=== PATIENT | female | born 1965 | race Hispanic/Latino ===

== ENCOUNTER 2016-10-27 09:26 | Emergency (ER) | payer OTHER ==
[~2016-10-27] VITALS: Ht 157.5 cm; Wt 95.5 kg
[~2016-10-27 09:26] MED LIST: DIAZ10TA3; DULO60CA42; GABA100C
[2016-10-27 09:33] VITALS: BP 182/103; PULSE 97; RESP 24; O2SAT 97
--- NOTE | 2016-10-27 09:45 | ED.REPORT ---
HPI-Dyspnea / Wheezing Date of Service Oct 27, 2016 ED Provider: Nadeem Watt MD A 51 year old female with a history of asthma with CPAP, hypertension, hyperlipidemia, and diabetes presents to the ED complaining of "flu-like" symptoms. She began to experience a cough and congestion seven weeks ago with sore throat and rhinorrhea. She also admits to chills and possible fever. The pt went to the walk-in clinic several weeks ago, where she was diagnosed with a sinus infection. She was given antibiotics for this, which were finished eight days ago, but her symptoms have not improved. The pt came to the ED today because it was increasingly difficult to breathe last night. Her cough is productive with yellow sputum, and she has noticed that the sputum has been slightly bloody in the morning. The pt denies chest pain, as well as any history of blood clot or recent travel. No one else is ill at home. The pt has not taken her blood pressure medication today. Nursing Notes Stated Complaint: COUGH,CONGESTION Chief Complaint: FLU/Cold Symptoms Nursing Notes Reviewed: Yes Allergies: Coded Allergies: No Known Allergies (Verified , 10/23/04) Uncoded Allergies: POLLEN,GRASS,TREES,MOLD (Allergy, Unknown, SINUS PROBLEMS, 10/23/04) Scheduled Levofloxacin (Levaquin) 750 Mg Tablet 750 MG PO DAILY Scheduled PRN Promethazine DM Syrup (Promethazine DM Syrup) 118 Ml Syrup 5 ML PO HS PRN PRN For Cough Miscellaneous Medications Diazepam-Expunged Drug, Do Not Renew! (Diazepam-Expunged Drug, Do Not Renew!) 10 Mg Tablet Duloxetine-Expunged Drug, Do Not Renew! (Cymbalta-Expunged Drug, Do Not Renew!) 60 Mg Capsule. Gabapentin-Expunged Drug, Do Not Renew! (Neurontin-Expunged Drug, Do Not Renew! ) 100 Mg Capsule General Time Seen by MD: 09:39 Chief Complaint Cough Hx Obtained From: Patient Arrived By: Walk-in Sudden in Onset?: No Onset Occurred: More than a week ago... Symptom Duration: Since onset Recent Healthcare: No recent hospitalization, Recent doctor visit Similar Sx Previous: No Risk Factors Well's Criteria for PE Hemoptysis (1) Well's PE Score: 0-2 pts (low risk 3.6%) Past Medical History Past Medical History Hx of chest pain Hx of multiple wrist fxs Normal Myocardial Perfusion Scan 2014 Normal Cardiac ECHO 2014. Asthma with CPAP Reports: Diabetes mellitus, Hyperlipidemia, Hypertension Past Surgical History none reported Family History Mother, now , DM and CAD. Smoking History Never Smoker Ambulatory Status Independent Review of Systems Constitutional: Reports: Chills, Fever (possible) Ears / Nose / Throat: Reports: Sore throat Respiratory: Reports: Prod cough, yellow Cardiovascular: Denies: Chest pain Allergy / Immune: Reports: Rhinorrhea Complete sys rev & neg: except as marked. Physical Exam Initial Vital Signs Vital Signs (First) Date Time Temp Pulse Resp B/P Pulse Ox O2 Delivery O2 Flow Rate FiO2 10/27/16 09:33 37.0 97 24 182/103 97 Room Air Initial VS: Reviewed General/Constitutional: Awake, Alert Neck: Atraumatic, Supple, Full range of motion Respiratory / Chest: Atraumatic, Breath sounds NL, Breath sounds = bilat, No respiratory distress Cardiovascular: Regular rhythm, Heart sounds NL, No murmurs Heart Rate / Rhythm: Positive: Tachycardia ENT: Atraumatic, Airway patent, Mucous membranes moist Abdomen: Atraumatic, Soft, Non-tender Back: Atraumatic, Full range of motion Lower Extremity / Pelvis / MS: Atraumatic, Full range of motion, No edema Skin: Atraumatic, Color NL, No rash, Warm, Dry Neurologic: Oriented X3, Speech NL, No motor deficits, No sensory deficits Head / Eyes: Atraumatic, Normocephalic, PERRL, EOMI Upper Extremity / MS: Atraumatic, Full range of motion Psychiatric: Affect NL, Mood NL Interpretation & Diagnostics X-Ray Chest Interpretation Chest Xray Interpretation: IMPRESSION: No acute disease Dictated by: Cameron Mensah M.D. on 10/27/2016 at 10:51 Approved by: Cameron Mensah M.D. on 10/27/2016 at 10:51 Interpretation / Wet Read by: Interpret - Radiologist Re-Eval/Medical Decision Med Decision/Clinical Course 51-year-old female history of asthma, hypertension, hyperlipidemia percent complaining of cough and congestion runny nose 7 weeks. She is status post Augmentin with questionable improvement. Her vital signs are stable. Her wells score for PE is low risk. Chest x-ray clear. Patient with bilateral sinus tenderness. We will treat with Levaquin given failed Augmentin. Recommend she follow up with primary doctor 2-3 days. Return precautions given. Source of Hx: Old records Re-Evaluation/Progress : Time of Eval: 11:18 Patient Status: Condition improved Re-Evaluation/Progress Note: Pt rechecked, who is resting comfortably. She is informed of radiology results and diagnosis. The pt understands and agrees with the plan. All questions are addressed at this time. Counseled Regarding: Diagnosis, Lab results, Need for follow-up, When/why to return to ED Discharge & Departure Impression: Primary Impression: Sinusitis Sinusitis location: unspecified location Chronicity: unspecified Qualified Code: J32.9 - Chronic sinusitis, unspecified Disposition: Home Discharge Condition All VS Reviewed: Yes Condition: Stable Patient Instructions: Sinusitis (ED) Additional Instructions: Your chest x-ray is reassuring and indicates that you have a sinus infection. Take Levaquin as directed and stay hydrated. Follow up with your primary care physician for further evaluation. Return to the ED if you develop any new or worsening symptoms. Referrals: Aisha Mortensen MD (PCP) [facility] Roya Attestation Portions of this note were transcribed by Demetrius Zhu I, Dr. Watt personally performed the history, physical exam and medical decision-making; I reviewed and confirmed the accuracy of the information in the transcribed note. Signed by: Roya Tamez, 10/27/16 and 11:21. copies to: C[facility]IOLOGY,[facility]; Aisha Mortensen MD, Ben M MD Oct 27, 2016 09:45 DEMETRIUS ZHU Oct 27, 2016 10:03
--- NOTE | 2016-10-27 10:52 | DRSVH ---
PROCEDURE: X-RAY CHEST ONE VIEW, PORTABLE ([id number]) INDICATIONS: cough TECHNIQUE: One view of the chest was acquired. COMPARISON: [facility], CR, XR CHEST 1VW (PORTABLE), 10/17/2015, 12:39. FINDINGS: Surgical changes and devices: Cervical spine fixation hardware Lungs and pleura: No pleural effusions or pneumothorax. Lungs are clear. Mediastinum: Mediastinal contours appear normal. Heart size is normal. Bones and chest wall: No suspicious bony lesions. Overlying soft tissues appear unremarkable. IMPRESSION: No acute disease Dictated by: Cameron Mensah M.D. on 10/27/2016 at 10:51 Approved by: Cameron Mensah M.D. on 10/27/2016 at 10:51
[2016-10-27] MEDS ORDERED: LEVO750T9 PO (11:20)
[2016-10-27] MEDS ORDERED: D-ME118S8 PO (11:20)
[2016-10-27 11:28] VITALS: BP 120/82; PULSE 87; O2SAT 96
== END 2016-10-27 11:22 | disposition home or self-care (01) ==
LOC: SED 09:26
DX: J32.9 Chronic sinusitis, unspecified (principal); J45.909 Unspecified asthma, uncomplicated; E11.9 Type 2 diabetes mellitus without complications; E78.5 Hyperlipidemia, unspecified; I10 Essential (primary) hypertension; Z99.81 Dependence on supplemental oxygen

== ENCOUNTER 2017-06-08 14:39 | Emergency (ER) | payer OTHER ==
[~2017-06-08] VITALS: Ht 158.8 cm; Wt 86.7 kg
[~2017-06-08 14:39] MED LIST changes: +D-ME118S8 PO; +LEVO750T9 PO
[2017-06-08 14:41] VITALS: BP 188/92; PULSE 73; RESP 18; O2SAT 98
--- NOTE | 2017-06-08 15:08 | ED.REPORT ---
HPI-Chest Pain 40 and Over Date of Service Jun 08, 2017 ED Provider: Mike Tomlinson MD Pt is a 52 year old female with a history of hypertension, hyperlipidemia, depression, and DM who presents to the ED complaining of chest pain onset two weeks. She states that the pain radiates to her left arm, and worsens with exertion, moving her head certain ways, and deep inspiration. Today, she noticed that her legs felt heavier, so she called her psychiatrist who recommended coming to the ED. Additional symptoms include fatigue and numbness in her mouth and lips. Pt was evaluated for cardiac disease about a year ago, and was determined that everything was normal. Her mother at 57 from cardiac disease with an enlarged heart. Nursing Notes Stated Complaint: CHEST PAIN Chief Complaint: Chest Pain Nursing Notes Reviewed: Yes Allergies: Coded Allergies: No Known Allergies (Verified , 06/08/17) Uncoded Allergies: POLLEN,GRASS,TREES,MOLD (Allergy, Unknown, SINUS PROBLEMS, 10/23/04) Scheduled Levofloxacin (Levaquin) 750 Mg Tablet 750 MG PO DAILY Scheduled PRN Promethazine DM Syrup (Promethazine DM Syrup) 118 Ml Syrup 5 ML PO HS PRN PRN For Cough Miscellaneous Medications Diazepam-Expunged Drug, Do Not Renew! (Diazepam-Expunged Drug, Do Not Renew!) 10 Mg Tablet Duloxetine-Expunged Drug, Do Not Renew! (Cymbalta-Expunged Drug, Do Not Renew!) 60 Mg Capsule. Gabapentin-Expunged Drug, Do Not Renew! (Neurontin-Expunged Drug, Do Not Renew! ) 100 Mg Capsule General Time Seen by MD: 15:07 Chief Complaint Chest pain Hx Obtained From: Patient Arrived By: Walk-in Sudden in Onset?: No Onset Occurred: More than a week ago... (2 weeks) Quality: Painful Severity: Current: Mild Severity: Maximum: Moderate Exacerbated by: Exertion, mild, Movement (of head), Palpation of chest Context Related History: Reports: Diabetes mellitus, Hypertension Recent Healthcare: Recent doctor visit Risk Factors )( CAD Risk Stratification Diabetes mellitus Family history Hyperlipidemia Hypertension Risk factors reviewed )( TAD Risk Stratification Hypertension Risk factors reviewed )( PE Risk Stratification Risk factors reviewed NIH Stroke Scale Level of Consciousness: Alert and responsive (0) Ask Month & Age: Both questions right (0) Open/Close Eyes/Hand Grinder Set Up Operator Thread Tool: Performs both tasks (0) Horizontal EO Movements: None (0) Visual Ball: No visual loss (0) Facial Palsy: Normal symmetry (0) Right Arm Motor Drift (10s): No drift 10 sec (0) Left Arm Motor Drift (10s): No drift 10 sec (0) Right Leg Motor Drift (5s): No drift 5 sec (0) Left Leg Motor Drift (5s): Drift, not touch bed (1) Limb Ataxia FNF/Heel-Sutton: No ataxia (0) Sensation (Arms/Legs/Face): Pinprick less sharp (1) Language Aphasia: No aphasia, normal (0) Dysarthria: No dysarthria, normal (0) Extinction/Inattention: No exctinct/inattent (0) NIHSS Score: 2 Time NIHSS Performed: 15:31 Date NIHSS Performed: Jun 08, 2017 Past Medical History Past Medical History Hx of chest pain Hx of multiple wrist fxs Normal Myocardial Perfusion Scan 2014 Normal Cardiac ECHO 2014. 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 Smoking History Never Smoker Ambulatory Status Independent Review of Systems Review of Systems Note: Heaviness in bilateral legs Constitutional: Reports: Fatigue Cardiovascular: Reports: Chest pain Neurologic: Reports: Numbness (in mouth and lips) Complete sys rev & neg: except as marked. Physical Exam Initial Vital Signs Vital Signs (First) Date Time Temp Pulse Resp B/P Pulse Ox O2 Delivery O2 Flow Rate FiO2 06/08/17 14:41 37 73 18 188/92 98 Room Air Initial VS: Reviewed Head / Eyes: Atraumatic, Normocephalic Neck: Supple, Full range of motion Extremities: Vascular intact, Neuro intact, No swelling, No tenderness Skin: Warm, Dry, No cyanosis Neurologic: Alert, Oriented, Nonfocal Psychiatric: Mood/affect normal, Behavior normal, Normal thought content General/Constitutional: Awake, Alert Respiratory / Chest: Atraumatic, Breath sounds NL, Breath sounds = bilat, No respiratory distress Tenderness and reproducible pain with palpation on left-side of chest Cardiovascular: Heart rate NL, Regular rhythm, Heart sounds NL Abdomen: Soft, Non-tender Interpretation & Diagnostics Brain MRI: IMPRESSION: 1. No infarct or other acute intracranial abnormality. 2. Scattered bilateral subcortical and periventricular foci of white matter T2 hyperintensity are nonspecific but likely represent mild chronic small vessel ischemic changes. The differential is broad and includes sequelae of inflammatory processes such as vasculitis, migraines, or prior infection among other etiologies. Dictated by: Constantino Shepard M.D. on 06/08/2017 at 17:19 Approved by: Constantino Shepard M.D. on 06/08/2017 at 17:19 Lab Results Interpretation Result Diagram: 06/08/17 1516 06/08/17 1516 Test 06/08/17 15:16 White Blood Count 6.4th/mm3 (3.8-10.1) Red Blood Count 4.12mil/mm3 (3.90-5.20) Hemoglobin 11.9g/dL (12.0-15.6) Hematocrit 36.4% (35.0-46.0) Mean Corpuscular Volume 88.3fL (81-100) Mean Corpuscular Hemoglobin 28.9pg (27.0-35.0) Mean Corpuscular Hemoglobin Concent 32.7% (32.0-37.0) Red Cell Distribution Width 13.4% (12.3-15.4) Platelet Count 194bil/L (150-400) Neutrophils (%) (Auto) 56.5% (40-74) Lymphocytes (%) (Auto) 33.2% (14-46) Monocytes (%) (Auto) 9.2% (4-12) Eosinophils (%) (Auto) 0.9% (0-5) Basophils (%) (Auto) 0.2% (0-3) Sodium Level 137mEq/L (134-144) Potassium Level 4.6mEq/L (3.5-5.2) Chloride Level 102mEq/L (97-108) Carbon Dioxide Level 21mmol/L (18-29) Blood Urea Nitrogen 11mg/dL (6-24) Creatinine 0.64mg/dL (0.57-1.00) Estimat Glomerular Filtration Rate 140mL/min (>59) Glucose Level 113mg/dL (60-99) Calcium Level 9.5mg/dL (8.5-10.1) Magnesium Level 2.1mg/dL (1.6-2.6) Total Bilirubin 0.3mg/dL (0.0-1.2) Aspartate Amino Transf (AST/SGOT) 26U/L (0-50) Alanine Aminotransferase (ALT/SGPT) 20U/L (0-32) Alkaline Phosphatase 95U/L (25-150) Troponin T < 0.010ug/L (0.0-0.011) Total Protein 8.1g/dL (6.4-8.4) Albumin 4.8g/dL (3.4-5.0) ECG Interpretation ECG Interpretation: Sinus rhythm, rate 62 Time: 14:53 Interpreted by: ED physician X-Ray Chest Interpretation Chest Xray Interpretation: IMPRESSION: No acute pulmonary process. Dictated by: Leelee Rahman M.D. on 06/08/2017 at 15:36 Approved by: Leelee Rahman M.D. on 06/08/2017 at 15:36 View: AP & lat Interpretation / Wet Read by: Interpret - Radiologist Re-Eval/Medical Decision Med Decision/Clinical Course I was initially concerned that there may be evidence sufficient for the diagnosis of right hemisphere CVA, but because of the unusual features such as a large anxiety of sounding component as well as concomitant musculoskeletal chest pain and the chronicity of the symptoms I was not sure so I thought MRI would be an appropriate way to exclude definitively acute cerebral ischemia. This has been done and therefore I believe that stroke is not likely at all. Cardiac workup is also entirely reassuring in the setting of ongoing chest pain for 3 weeks. I believe that outpatient follow-up for further evaluation is the appropriate next step. Source of Hx: Old records Time of Eval: 15:30 Re-Evaluation/Progress Note: Patient rechecked. Performed physical exam and NIH stroke scale. Time of Eval: 17:32 Patient Status: Condition improved Re-Evaluation/Progress Note: Patient rechecked. Discussed plan for discharge. Patient understands and agrees with plan. Follow-up and return to ED warnings given. All questions addressed. Counseled Regarding: Diagnosis, Lab results, Need for follow-up, When/why to return to ED Discharge & Departure Primary Impression: Chest pain Additional Impressions: Facial numbness Leg weakness Discharge Condition All VS Reviewed: Yes Condition: Stable Patient Instructions: Chest Pain (ED) Additional Instructions: No dangerous cause for your symptoms was discovered today. Specifically, there is no evidence of heart attack or stroke. You may very well need further evaluation for these symptoms, but no emergent medical condition has been discovered at this time. I recommend follow-up with your mental health provider and with your primary care physician within the next week. [employer]late Ninguna causa peligrosa para ashish sntomas fue descubierta hoy. En concreto, no hay evidencia de ataque cardiaco o accidente cerebrovascular. Es posible que necesite kush evaluacin adicional de estos sntomas, alix no se benz descubierto ninguna condicin mdica emergente en ling momento. Recomiendo el seguimiento con mello proveedor de melody mental y con mello mdico de atencin primaria dentro de la prxima semana. Referrals: Aisha Mortensen MD (PCP) Scribe Attestation Portions of this note were transcribed by Chayito Lew. I, Dr. Tomlinson, personally performed the history, physical exam and medical decision-making; I reviewed and confirmed the accuracy of the information in the transcribed note. copies to: Aisha Mortensen MD, Kirk H MD Jun 08, 2017 15:08 Chayito Lew Jun 08, 2017 15:24
[2017-06-08 15:23] LABS: BASOPHILS % (AUTO) 0.2 % (0-3); EOSINOPHILS % (AUTO) 0.9 % (0-5); MONOCYTES % (AUTO) 9.2 % (4-12); Mean Corpuscular Hemoglobin 28.9 pg (27.0-35.0); Mean Corpuscular Volume 88.3 fL (81-100); NEUTROPHILS % (AUTO) 56.5 % (40-74); Platelet Count 194 bil/L (150-400)
--- NOTE | 2017-06-08 15:38 | DRSVH ---
PROCEDURE: X-RAY CHEST, TWO VIEWS ([id number]) INDICATIONS: chest pain TECHNIQUE: 2 views of the chest were acquired. COMPARISON: None. FINDINGS: Surgical changes and devices: Cervical fixation plate. Lungs and pleura: No pleural effusions or pneumothorax. Lungs are clear. Mediastinum: Mediastinal contours are normal. Heart size is normal. Bones and chest wall: No suspicious bony abnormalities. Soft tissues appear unremarkable. IMPRESSION: No acute pulmonary process. Dictated by: Leelee Rahman M.D. on 06/08/2017 at 15:36 Approved by: Leelee Rahman M.D. on 06/08/2017 at 15:36
[2017-06-08 16:00] LABS: Magnesium 2.1 mg/dL (1.6-2.6)
[2017-06-08 16:08] LABS: TROPONIN T < 0.010 ug/L (0.0-0.011)
--- NOTE | 2017-06-08 17:21 | DRSVH ---
PROCEDURE: MRI BRAIN WITHOUT CONTRAST ([id number]) INDICATIONS: left arm, leg face numb, L leg weak TECHNIQUE: Noncontrast axial T1 spin echo, axial T2 fast spin echo, sagittal and axial FLAIR, coronal T2 fast sp in echo, axial gradient echo, axial diffusion and ADC through the brain. COMPARISON: [facility], CT, BRAIN W/O CONTRAST, 09/04/2008, 20:20. FINDINGS: Image quality: Excellent. CSF Spaces: Basal cisterns are patent. No extra-axial fluid collections. Ventricles are normal in size and shape. Brain: Diffusion weighted images demonstrate no acute infarcts. No intracranial hemorrhage, mass, o r mass effect. There are scattered bilateral small subcortical and periventricular foci of white mat ter T2 hyperintensity. English/white matter interface is normal. Brainstem appears normal. Normal int ravascular flow voids are present. Skull and face: Calvarium has normal marrow signal. Orbits appear normal. Sinuses: There is mild mucosal thickening within the ethmoid and maxillary sinuses with small air-flu id levels in the maxillary sinuses. The mastoid air cells are clear. IMPRESSION: 1. No infarct or other acute intracranial abnormality. 2. Scattered bilateral subcortical and periventricular foci of white matter T2 hyperintensity are no nspecific but likely represent mild chronic small vessel ischemic changes. The differential is broad and includes sequelae of inflammatory processes such as vasculitis, migraines, or prior infection am maribel other etiologies. Dictated by: Constantino Shepard M.D. on 06/08/2017 at 17:19 Approved by: Constantino Shepard M.D. on 06/08/2017 at 17:19
== END 2017-06-08 17:48 | disposition home or self-care (01) ==
LOC: SED 14:39
DX: R07.89 Other chest pain (principal); R20.0 Anesthesia of skin; M62.81 Muscle weakness (generalized); I10 Essential (primary) hypertension; E78.5 Hyperlipidemia, unspecified; E11.9 Type 2 diabetes mellitus without complications; K21.9 Gastro-esophageal reflux disease without esophagitis; E03.9 Hypothyroidism, unspecified; J45.909 Unspecified asthma, uncomplicated; F32.9 Major depressive disorder, single episode, unspecified